=== PATIENT | female | born 2000 | race Caucasian/White ===

== ENCOUNTER 2018-11-15 15:06 | Emergency (ER) | payer OTHER ==
[2018-11-15 15:18] VITALS: BP 103/57
--- NOTE | 2018-11-15 15:54 | UC ---
Abdominal Pain Female HPI - HPI Summary HPI Summary: 18 y/o female presents to the urgent care c/o suddent onset of RLQ cramping abdominal pain since yesterday afternoon while playing soccer. She though it was going to go away after the game, but it worsen specially last night. Her mother gave her Motrin 600mg PO to alleviate symptoms. This morning she ate well , but had nausea, then pain worsen. Pain now is sharp w/o any radiation 8/10 and worse w/ certain movements. LMP: 10/25/2018 w/ regular menstrual cycles, Menarche at 10 year of age. Pt denies fever, URI symptoms, SOB, chest pain, dizziness, vaginal d/c, urinary symptoms, flank pain, Hx of STD's. Pt states her mother has Hx of ovarian cyst. - History of Current Complaint Chief Complaint: UCAbdominalPain Stated Complaint: ABDOMINAL PAIN Time Seen by Provider: 11/15/18 15:51 Hx Obtained From: Patient Hx Last Menstrual Period: ?: No Onset/Duration: Sudden Onset, Lasting Days - 1 day, Still Present, Worse Since - this afternoon Timing: Constant Severity Initially: Mild Severity Currently: Severe Pain Intensity: 8 Pain Scale Used: 0-10 Numeric Location: Discrete At: RLQ Radiates: No Character: Colicy, Cramping Aggravating Factor(s): Movement, Other: - nausea Alleviating Factor(s): OTC Analgesics - Motrin PO last night Associated Signs and Symptoms: Positive: Nausea. Negative: Fever, Cough, Back Pain, Constipation, Urinary Symptoms, Decreased Appetite, Vaginal Bleeding, Vaginal Discharge - Risk Factors Ectopic Risk Factor: Negative Allergies/Adverse Reactions: Allergies Allergy/AdvReac Type Severity Reaction Status Date / Time CILLINS Allergy TESTED Uncoded 11/15/18 16:49 A CHILD AND CAN NOT TAKE ANY TYPE OF CILLINS Home Medications: Home Medications NK [No Home Medications Reported] 11/15/18 [History Confirmed 11/15/18] PMH/Surg Hx/FS Hx/Imm Hx Previously Healthy: Yes - Pt denies PMHX - Surgical History Surgical History: None Surgery Procedure, Year, and Place: Tonsillectomy - Family History Known Family History: Positive: None - Pt denies FMHX - Social History Occupation: Student Lives: With Family Alcohol Use: None Substance Use Type: None Smoking Status (MU): Never Smoked Tobacco Review of Systems All Other Systems Reviewed And Are Negative: Yes Constitutional: Positive: Negative Skin: Positive: Negative Eyes: Positive: Negative ENT: Positive: Negative Respiratory: Positive: Negative Cardiovascular: Positive: Negative Gastrointestinal: Positive: Abdominal Pain - RLQ abdominal pain, Nausea Genitourinary: Positive: Negative Motor: Positive: Negative Neurovascular: Positive: Negative Musculoskeletal: Positive: Negative Neurological: Positive: Negative Psychological: Positive: Negative Is Patient Immunocompromised?: No Physical Exam - Summary Physical Exam Summary: Vital Signs Reviewed: Yes General:Patient is a well developed and nourished female who is sitting comfortable in the examining table. Patient is not in any acute respiratory distress. Eyes: Positive: Conjunctiva Clear - PERRLA, EOMI, fundi grossly normal ENT: Positive: Normal ENT inspection, Hearing grossly normal, Pharynx normal, TMs normal Neck: Positive: Supple, Nontender, No Lymphadenopathy Respiratory: Positive: Chest non-tender, Lungs clear, Normal breath sounds, No respiratory distress Cardiovascular: Positive: RRR,S1 and S2 present, No Murmur, Pulses Normal, Brisk Capillary Refill Abdomen Description: Positive: Abd: Flat with no distention. No surface trauma , scars, incisions. hyperactive bowel sounds present in all four quadrants. RLQ abdominal pain on deep palpation, no guarding, no rigidity to palpation. No masses palpated, no pulsation in epigastric area. No organomegaly. Negative [place] signs. No periumbilical tenderness. No rebound in the lower quadrants. Positive over McBurneys point. Good femoral pulses bilaterally. No hernia noted. No CVAT bilaterally Musculoskeletal: Positive: Strength Intact, ROM Intact, No Edema,FROM in all major joints, no edema, no cyanosis or clubbing. Neuro: Alert and oriented x 3. No acute neurological deficits. Speech is normal. Psychological: WNL Skin: Dry and warm Triage Information Reviewed: Yes Vital Signs: Initial Vital Signs Temp 98.7 F 11/15/18 15:14 Pulse 64 11/15/18 15:14 Resp 18 11/15/18 15:14 BP 103/57 11/15/18 15:14 Pulse Ox 98 11/15/18 15:14 Abd Pain Female Course/Dx - Course Course Of Treatment: 18 y/o female presents to the urgent care c/o suddent onset of RLQ cramping abdominal pain since yesterday afternoon while playing soccer. She though it was going to go away after the game, but it worsen specially last night. Her mother gave her Motrin 600mg PO to alleviate symptoms. This morning she ate well , but had nausea, then pain worsen. Pain now is sharp w/o any radiation 8/10 and worse w/ certain movements. LMP: 10/25/2018 w/ regular menstrual cycles, Menarche at 10 year of age. Pt denies fever, URI symptoms, SOB, chest pain, dizziness, vaginal d/c, urinary symptoms, flank pain, Hx of STD's. Pt states her mother has Hx of ovarian cyst. Hx obtained. PT is hemodynamically stable, AxOX3, Vital WNL. w/ tenderness to deep palpation on RLQ and over McBurneys point on examination. UA ordered: negative,, test: negative. Mother w/ Hx of ovarian cyst, LMP; 10/25/2018 w/ regular menstrual cycles. I made Pt jump and RLQ abdominal pain increase in severity 11/13. I explained to PT the need to r/o appendicitis, ovarian cyst or torsion or any other etiology on the RLQ abdomen. Pt needs Abdominal CT w/ contrast since her BMI is <24, blood work stat and possible a pelvic US. I discussed Pt's symptoms w/ Dr worley and he recommends Pt to go to Health system for further management. Pt came to the clinic by her self, Pt offered Ambulance transfer, but she declined and stated she will go there by private car and her mother will meet her there. I educated Pt's in the risks of not taken the ambulance transfer. But still she declined. . I called [facility] and discussed Pt's symptom w/ DR Armendariz who accepted PT. Pt advised to continue NPO and left the clinic ambulating, hemodynamically stable, A&OX3. - Differential Dx/Diagnosis Differential Diagnosis: Appendicitis, Constipation, Ovarian Cyst, Pelvic Inflammatory Disease, , Renal Colic, Urinary Tract Infection, Other - ovarian cyst or torsion Provider Diagnosis: Abdominal pain, right lower quadrant Discharge ED - Sign-Out/Discharge Documenting (check all that apply): Patient Departure - D/C All imaging exams completed and their final reports reviewed: No Studies - Discharge Plan Condition: Stable Disposition: HOME-RECOMMEND TO ED Patient Education Materials: Acute Abdominal Pain (ED) Referrals: Randal Flores MD [Primary Care Provider] - Additional Instructions: I think you need a higher level or care for your presenting symptoms. I highly recommend you to go to the ER for further evaluation and treatment. The risks of not going can be , sepsis, appendicitis, ovarian cyst or torsion, peritonitis, etc. I spoke to the ER attending Dr Pillai. They are expecting you. - Billing Disposition and Condition Condition: STABLE Disposition: Home-Recommend to ED
== END 2018-11-15 16:20 | disposition home health service (06) ==
LOC: UCEAST 15:06
DX: R10.31 Right lower quadrant pain (principal); Z88.0 Allergy status to penicillin
CPT/HCPCS: 81003; 84702; 99212; G0463

== ENCOUNTER 2018-11-15 16:37 | Emergency (ER) | payer OTHER ==
[2018-11-15 18:19] LABS: ABS Eosinophils 0.1 10^3/ul (0-0.6); ABS Lymphocytes 2.8 10^3/ul (1.0-4.8); ABS Monocytes 0.4 10^3/ul (0-0.8); ABS Neutrophils 4.3 10^3/ul (1.5-7.7); Hematocrit 37 % (35-47); Hemoglobin 12.6 g/dL (12.0-16.0); Lymphocyte % 36.8 %; Mean Corpuscular HGB Conc 34 g/dL (31-36); Mean Corpuscular Hemoglobin 29 pg (27-31); Mean Corpuscular Volume 86 fL (80-97); Mean Platelet Volume 8.2 fL (7.4-10.4); Nucleated Red Blood Cells % 0.1; Platelet Count 222 10^3/uL (150-450); Red Blood Count 4.31 10^6 /uL (3.70-4.87); Red Cell Distribution Width 14 % (10-15); White Blood Count 7.7 10^3/uL (3.5-10.8)
[2018-11-15 18:36] LABS: ALT 20 U/L (7-52); AST 28 U/L (13-39); Albumin 4.7 g/dL (3.2-5.2); Alkaline Phosphatase 66 U/L (34-104); Anion Gap 5 mmol/L (2-11); BUN/Creatinine Ratio 21.4 (8-20); Blood Urea Nitrogen 21 mg/dL (6-24); C Reactive Protein < 1.00 mg/L (<8.01); CO2 Carbon Dioxide 28 mmol/L (22-32); Calcium 9.3 mg/dL (8.6-10.3); Chloride 105 mmol/L (101-111); EGFR African American 87.5 (>60); EGFR Non-African American 72.4 (>60); Globulin 2.4 g/dL (2-4); Glucose 96 mg/dL (70-100); Potassium 3.7 mmol/L (3.5-5.0); Sodium 138 mmol/L (135-145); Total Protein 7.1 g/dL (6.4-8.9)
[2018-11-15 18:42] LABS: HCG Pregnancy < 0.60 mIU/mL
[2018-11-15] MEDS ORDERED: Ibuprofen TAB* 400 MG PO ONE (19:45)
--- NOTE | 2018-11-15 20:00 | ED ---
Abdominal Pain/Female - HPI Summary HPI Summary: This patient is a 18 year old F presenting to [facility] accompanied by Document Examiner with a chief complaint of abdominal pain since 11/14/18 at 1600. Patient states that the pain is located in the RLQ and characterizes the pain as cramping that radiates upwards. Patient states that she took Motrin for the pain but symptoms did not improve. Patients LKNMP was 3 weeks ago. Patient denies n/v/d, dysuria, fever, vaginal bleeding or vaginal discharge. Patient also denies EtOH use, tobacco use and substance abuse. Patient denies any similar episodes. The patient rates the pain 8/10 in severity. Symptoms aggravated by nothing. Symptoms alleviated by nothing. - History of Current Complaint Chief Complaint: EDAbdPain Stated Complaint: ABD PAIN, FROM CC PER PT Time Seen by Provider: 11/15/18 19:30 Hx Obtained From: Patient, Family/Sample Preparation Supervisor - Document Examiner Hx Last Menstrual Period: Onset/Duration: Lasting Hours - 11/14/18 Timing: Constant Severity Currently: Severe Pain Intensity: 7 Pain Scale Used: 0-10 Numeric Location: Discrete At: RLQ Radiates: Yes Radiates to: Other - "pain shoots up" Character: Cramping Aggravating Factor(s): Nothing Alleviating Factor(s): Nothing Associated Signs and Symptoms: Positive: Other: - Dysuria. Negative: Fever, Nausea, Vomiting, Diarrhea Allergies/Adverse Reactions: Allergies Allergy/AdvReac Type Severity Reaction Status Date / Time CILLINS Allergy TESTED Uncoded 11/15/18 16:49 A CHILD AND CAN NOT TAKE ANY TYPE OF CILLINS PMH/Surg Hx/FS Hx/Imm Hx Endocrine/Hematology History: Denies: Hx Diabetes Cardiovascular History: Denies: Hx Hypertension, Hx Pacemaker/ICD History: Denies: Hx Renal Disease Sensory History: Denies: Hx Hearing Aid Psychiatric History: Denies: Hx Panic Disorder - Surgical History Surgery Procedure, Year, and Place: Tonsillectomy Infectious Disease History: No Infectious Disease History: Denies: Traveled Outside the [place] in Last 30 Days - Family History Known Family History: Negative: Blood Disorder - Social History Alcohol Use: None Substance Use Type: Reports: None Hx Tobacco Use: No Smoking Status (MU): Never Smoked Tobacco Review of Systems Negative: Fever Positive: Abdominal Pain. Negative: Vomiting, Diarrhea, Nausea Positive: other - Negative- vaginal bleeding . Negative: dysuria, discharge All Other Systems Reviewed And Are Negative: Yes Physical Exam - Summary Physical Exam Summary: General: Well-developed, Well-nourished (MALE/FEMALE). No acute distress. HEENT: Normocephalic, Atraumatic. Eyes: Conjuctiva normal, PERRL. Ears: TMs within normal limits. Nares: (-) discharge, (-) erythema. Oropharynx: Clear, mucous membranes moist, (-) exudates. Neck: Soft, FROM, (-) lymphadenopathy, (-) thyromegaly, (-) JVD. Cardiovascular: Normal sinus rhythm, (-) murmur. Lungs: Clear to auscultation bilaterally (-) wheezes, (-) rales, (-) rhonchi. Abdomen: Soft, Mild RLQ tenderness, No rebound, No guarding, non-distended, (-) organomegaly, normal bowel sounds. Back: (-) CVA tenderness Extremities: No edema. Skin: Warm, dry, (-) rash. Neuro: Alert and oriented x3, no focal deficits. Psychiatric: Mood normal, affect normal. Triage Information Reviewed: Yes Vital Signs On Initial Exam: Initial Vitals Temp Pulse Resp BP Pulse Ox 98.7 F 60 15 108/78 98 11/15/18 16:47 11/15/18 16:47 11/15/18 16:47 11/15/18 16:47 11/15/18 16:47 Vital Signs Reviewed: Yes Diagnostics - Vital Signs Vital Signs Temp Pulse Resp BP Pulse Ox 11/15/18 17:50 98.7 F 54 15 129/85 97 11/15/18 16:47 98.7 F 60 15 108/78 98 - Laboratory Lab Results: Lab Results 11/15/18 11/15/18 11/15/18 Range/Units 18:13 18:13 18:13 WBC 7.7 (3.5-10.8) 10^3/uL RBC 4.31 (3.70-4.87) 10^6 /uL Hgb 12.6 (12.0-16.0) g/dL Hct 37 (35-47) % MCV 86 (80-97) fL MCH 29 (27-31) pg MCHC 34 (31-36) g/dL RDW 14 (10-15) % Plt Count 222 (150-450) 10^3/uL MPV 8.2 (7.4-10.4) fL Neut % (Auto) 56.0 % Lymph % (Auto) 36.8 % Power % (Auto) 5.8 % Eos % (Auto) 1.0 % Baso % (Auto) 0.4 % Absolute Neuts (auto) 4.3 (1.5-7.7) 10^3/ul Absolute Lymphs (auto) 2.8 (1.0-4.8) 10^3/ul Absolute Monos (auto) 0.4 (0-0.8) 10^3/ul Absolute Eos (auto) 0.1 (0-0.6) 10^3/ul Absolute Basos (auto) 0.0 (0-0.2) 10^3/ul Absolute Nucleated RBC 0.0 10^3/ul Nucleated RBC % 0.1 Sodium 138 (135-145) mmol/L Potassium 3.7 (3.5-5.0) mmol/L Chloride 105 (101-111) mmol/L Carbon Dioxide 28 (22-32) mmol/L Anion Gap 5 (2-11) mmol/L BUN 21 (6-24) mg/dL Creatinine 0.98 H (0.51-0.95) mg/dL Est GFR ( Amer) 87.5 (>60) Est GFR (Non-Af Amer) 72.4 (>60) BUN/Creatinine Ratio 21.4 H (8-20) Glucose 96 (70-100) mg/dL Lactic Acid 0.4 L (0.5-2.0) mmol/L Calcium 9.3 (8.6-10.3) mg/dL Total Bilirubin 0.50 (0.2-1.0) mg/dL AST 28 (13-39) U/L ALT 20 (7-52) U/L Alkaline Phosphatase 66 (34-104) U/L C-Reactive Protein < 1.00 (<8.01) mg/L Total Protein 7.1 (6.4-8.9) g/dL Albumin 4.7 (3.2-5.2) g/dL Globulin 2.4 (2-4) g/dL Albumin/Globulin Ratio 2.0 (1-3) Lipase 23 (11.0-82.0) U/L Beta HCG, Quant < 0.60 mIU/mL Result Diagrams: 11/15/18 18:13 11/15/18 18:13 Lab Statement: Any lab studies that have been ordered have been reviewed, and results considered in the medical decision making process. - Ultrasound Transvaginal US Ultrasound Interpretation Completed By: Radiologist Summary of Ultrasound Findings: Transvaginal US reveals, per radiologist, IMPRESSION: There is minimal free fluid in the pelvis, cannot exclude ovarian cyst rupture. ED Physician has reviewed this report. Appendix Ultrasound Interpretation Completed By: Radiologist Summary of Ultrasound Findings: Appendix US reveals, per radiologist, IMPRESSION : The appendix was not visualized. ED Physician has reviewed this report. Abdominal Pain Fem Course/Dx - Course Course Of Treatment: This patient is a 18 year old F presenting to [facility] with RLQ abdominal pain for one day. Test results with no significant abnormalities except for Creatinine 0.98, BUN/Creatinine Ratio 21.4, Lactic Acid 0.4. US were normal except for transvaginal US revealed minimal free fluid in the pelvis, cannot exclude ovarian cyst rupture. ED Physician has reviewed this report. Physician had thorough discussion with patient regarding differential diagnosis which includes acute appendicitis. due to lack of fever, elevated WBC and N/V, acute appendicitis is unlikely. although not excluded. therefore, patient is advised to follow up for recheck within 3 days, but return immediately if pain worsens, fever occurs, or she starts vomiting. In the ED patient was given Ibuprofen 400 mg PO. The patient is agreeable with this plan. Advised Ibuprofen , 2 tablets three times a day with food. - Diagnoses Provider Diagnoses: RLQ abdominal pain, Ovarian cyst Discharge ED - Sign-Out/Discharge Documenting (check all that apply): Patient Departure - discharge Patient Received Moderate/Deep Sedation with Procedure: No - Discharge Plan Condition: Stable Disposition: HOME Patient Education Materials: Ovarian Cyst (ED), Abdominal Pain (ED) Referrals: Randal Flores MD [Primary Care Provider] - 3 Days Additional Instructions: Please follow up with your primary care physician within three days. Please return to ED for any new or worsening symptoms. Patient should also take Ibuprofen 2 times a day with food. - Billing Disposition and Condition Condition: STABLE Disposition: Home - Attestation Statements Document Initiated by Scribe: Yes Documenting Scribe: Savannah Abbott Provider For Whom Scribe is Documenting (Include Credential): Dr. Guerda Henderson MD Scribe Attestation: I, Savannah Abbott scribed for Dr. Guerda Henderson MD on 11/16/18 at 0152. Scribe Documentation Reviewed: Yes Provider Attestation: The documentation as recorded by the roibeSavannah accurately reflects the service I personally performed and the decisions made by me, Dr. Guerda Henderson MD Status of Scribe Document: Ready
[2018-11-15 20:01] VITALS: BP 128/66
== END 2018-11-15 20:00 | disposition home or self-care (01) ==
LOC: ED 16:37
DX: R10.31 Right lower quadrant pain (principal); N83.209 Unspecified ovarian cyst, unspecified side; Z88.1 Allergy status to other antibiotic agents
CPT/HCPCS: 36415; 76705; 76830; 80053; 83605; 83690; 84702; 85025; 86140; 99282; A9270-GY

== ENCOUNTER 2019-02-11 15:23 | Emergency (ER) | payer MEDICAID ==
--- NOTE | 2019-02-11 15:30 | UC ---
FLU HPI - HPI Summary HPI Summary: 19 yo female presents with flu-like symptoms. She tells me that over the last week she has had a sore throat. Yesterday began to feel feverish with fatigue and body aches. She has been taking ibuprofen otc which helps her symptoms. She has not taken her temperature. Denies SOB, rash, abdominal pain, n/v, dysuria. - History of Current Complaint Stated Complaint: stuffy nose, AND ACHES Time Seen by Provider: 02/11/19 15:30 Hx Obtained From: Patient Hx Last Menstrual Period: Onset/Duration: Gradual Onset Severity Currently: Mild Severity Initially: Moderate Pain Intensity: 7 Pain Scale Used: 0-10 Numeric - Allergy/Home Medications Allergies/Adverse Reactions: Allergies Allergy/AdvReac Type Severity Reaction Status Date / Time CILLINS Allergy TESTED Uncoded 11/15/18 16:49 A CHILD AND CAN NOT TAKE ANY TYPE OF CILLINS PMH/Surg Hx/FS Hx/Imm Hx - Additional Past Medical History Additional PMH: None - Surgical History Surgical History: None Surgery Procedure, Year, and Place: Tonsillectomy - Family History Known Family History: Positive: None Negative: Blood Disorder - Social History Occupation: Student Lives: Dormitory/Roommates Alcohol Use: None Substance Use Type: None Smoking Status (MU): Never Smoked Tobacco Review of Systems All Other Systems Reviewed And Are Negative: No Constitutional: Positive: Fatigue, Other - Body aches Skin: Positive: Negative Eyes: Positive: Negative ENT: Positive: Sore Throat Respiratory: Positive: Negative Cardiovascular: Positive: Negative Gastrointestinal: Positive: Negative Neurological: Positive: Negative Psychological: Positive: Negative Physical Exam - Summary Physical Exam Summary: GENERAL: NAD. WDWN. No pain distress. SKIN: No rashes, sores, lesions, or open wounds. HEENT: Head: AT/NC Eyes: EOM intact. Conjunctiva clear without inflammation or discharge. Ears: Hearing grossly normal. TMs intact, no bulging, erythema, or edema. Nose: Nasal mucosa pink and moist. NTTP maxillary and frontal sinus. Throat: Posterior oropharynx without exudates, erythema, or tonsillar enlargement. Uvula midline. NECK: Supple. Nontender. No lymphadenopathy. CHEST: CTAB. No accessory muscle use. Breathing comfortably and in no distress. CV: RRR. Pulses intact. Cap refill <2seconds NEURO: Alert. PSYCH: Age appropriate behavior. Triage Information Reviewed: Yes Vital Signs: Vital Signs: Temp Pulse Resp BP Pulse Ox 98.9 F 95 18 140/119 99 02/11/19 15:45 02/11/19 15:45 02/11/19 15:45 02/11/19 15:45 02/11/19 15:45 Laboratory Tests 02/11/19 02/11/19 15:45 15:48 Influenza A (Rapid) Negative Influenza B (Rapid) Negative Group A Strep Rapid Negative Vital Signs (72 hours) 02/11/19 02/11/19 15:45 16:06 Temperature 98.9 F Pulse Rate 95 Respiratory 18 Rate Blood Pressure 140/119 128/68 (mmHg) O2 Sat by Pulse 99 Oximetry Vital Signs Reviewed: Yes Flu Course/Dx - Course Course Of Treatment: POC strep and flu negative. Recheck manual BP 128/68 - Differential Dx/Diagnosis Provider Diagnosis: Viral syndrome Discharge ED - Sign-Out/Discharge Documenting (check all that apply): Patient Departure All imaging exams completed and their final reports reviewed: No Studies - Discharge Plan Condition: Stable Disposition: HOME Patient Education Materials: Viral Syndrome (ED) Forms: *Work Release Referrals: Randal Flores MD [Primary Care Provider] - Additional Instructions: If you develop a fever, shortness of breath, chest pain, new or worsening symptoms - please call your PCP or go to the ED immediately. Your symptoms are likely from a viral infection. Viral infections do not respond to antibiotics and are limited to the treatment of symptoms. Viral infections typically run their course in 7-10 days. Drink plenty of fluids, especially if you are running any fever. Use salt water gargles several times a day. Take over the counter acetaminophen (Tylenol) or ibuprofen (Advil, Motrin) according to directions as needed for pain or fever. You may also use Chloraseptic spray or Cepacol lonzenges according to directions which contain a numbing medication and can provide some temporary relief from a sore throat. Return here or follow up with your primary care provider in 7 days if symptoms persist. - Billing Disposition and Condition Condition: STABLE Disposition: Home
[2019-02-11 16:00] LABS: Influenza A Molecular NEGATIVE (Negative); Influenza B Molecular NEGATIVE (Negative)
[2019-02-11 16:06] VITALS: BP 128/68
== END 2019-02-11 16:30 | disposition home or self-care (01) ==
LOC: UCEAST 15:23
DX: B34.9 Viral infection, unspecified (principal); J02.9 Acute pharyngitis, unspecified; R53.83 Other fatigue; R52 Pain, unspecified; Z88.0 Allergy status to penicillin
CPT/HCPCS: 87651; 99211; G0463